=== PATIENT | female | born 2000 | race Caucasian/White ===

== ENCOUNTER 2024-01-18 13:43 | Outpatient (CLI) | payer OTHER, SELFPAY ==
--- NOTE | ~2024-01-18 | MR_ITS ---
EXAMINATION: MRA brain wo con DATE: 01/18/2024 14:31 INDICATION: Headache. Dizziness. TECHNIQUE: Magnetic resonance angiography (MRA) of the brain was performed without intravenous contra st with T1-weighted SPGR by the 3D [id number] technique. Maximum intensity projection 3D-reconstr uctions were obtained. COMPARISON: Brain MRI 01/18/2024 FINDINGS: The vertebral arteries are codominant. There is no significant stenosis of basilar artery or the post erior cerebral arteries. The posterior communicating arteries are normal. There is no significant jamari nosis of the intracranial internal carotid arteries or anterior or middle cerebral arteries. Anterior communicating artery is normal. There is no aneurysm. IMPRESSION: 1. Normal MRA. Reviewed, dictated and finalized at location E. AGING LINE ATTENDANT IMPRESSION: 1. Normal MRA.
--- NOTE | ~2024-01-18 | MR_ITS ---
EXAMINATION: MR brain/brain stem wo/w con DATE: 01/18/2024 14:34 INDICATION: Headache. Dizziness. TECHNIQUE: Magnetic resonance imaging (MRI) of the brain and brainstem was performed without and with 10 mL MultiHance intravenous contrast. COMPARISON: None. FINDINGS: There is no intracranial hemorrhage, acute infarction, or abnormal intracranial mass lesion . The ventricles are normal in size. The mastoid air cells are normal The paranasal sinuses are clear. The orbits are normal. IMPRESSION: 1. Normal brain. Reviewed, dictated and finalized at location E. OR LOSS CONTROL SPECIALIST IMPRESSION: 1. Normal brain.
== END 2024-01-18 13:44 ==
PROVIDERS: PCP Internal Medicine; Visit Provider Internal Medicine
DX: R42 Dizziness and giddiness (principal); R51.9 Headache, unspecified
CPT/HCPCS: 70544; 70553; A9577

== ENCOUNTER 2024-01-24 09:02 | Outpatient (CLI) | payer OTHER, SELFPAY ==
--- NOTE | ~2024-01-24 | XR_ITS ---
EXAMINATION: XR chest 2V DATE: 01/24/2024 10:34 INDICATION: Shortness of breath. TECHNIQUE: Frontal and lateral views of the chest were obtained. COMPARISON: Chest single view 01/04/2018 FINDINGS: There is no pneumonia, pleural effusion, or pneumothorax. The heart size is normal. IMPRESSION: 1. No acute cardiopulmonary disease. Reviewed, dictated and finalized at location A.
== END 2024-01-24 09:03 | disposition home or self-care (01) ==
LOC: CHSCARD 09:04
PROVIDERS: PCP Internal Medicine; Visit Provider Internal Medicine
DX: R06.02 Shortness of breath (principal)
CPT/HCPCS: 71046; 94060; 94726; 94729; 95012

== ENCOUNTER 2025-07-04 15:03 | Outpatient (CLI) | payer OTHER, SELFPAY ==
[2025-07-04 16:48] LABS: Beta HCG Quantitative 84373.00 mIU/ML
== END 2025-07-04 15:04 | disposition home or self-care (01) ==
LOC: CHSLAB 15:10
PROVIDERS: PCP Internal Medicine; Visit Provider Obstetrics & Gynecology Gynecology
DX: O26.851 Spotting complicating pregnancy, first trimester (principal)
CPT/HCPCS: 36415; 84702; 86850; 86900; 86901

== ENCOUNTER 2025-07-06 17:15 | Outpatient (CLI) | payer OTHER, SELFPAY ==
[2025-07-06 23:09] LABS: Beta HCG Quantitative 108490.00 mIU/ML
== END 2025-07-06 17:16 | disposition home or self-care (01) ==
LOC: CHSLAB 17:16
PROVIDERS: PCP Internal Medicine; Visit Provider Obstetrics & Gynecology Gynecology
DX: O26.851 Spotting complicating pregnancy, first trimester (principal)
CPT/HCPCS: 36415; 84702

== ENCOUNTER 2025-07-16 15:12 | Outpatient (CLI) | payer OTHER, SELFPAY ==
--- NOTE | ~2025-07-16 | US_ITS ---
EXAMINATION: US OB <= 14 weeks fetus DATE: 07/16/2025 15:30 INDICATION: Spotting TECHNIQUE: Real-time transabdominal and transvaginal obstetric ultrasound. FINDINGS: No prior studies for comparison. The uterus measures 9.4 x 5.9 x 5.9 cm. There is an intrauterine gestational sac, with pole identified. The crown rump length measures 1.84 cm, which correlates with a estimated gestational age of 8 weeks 2 days. heart tones are identified measuring 169 bpm. The ovaries are not visualized. IMPRESSION: 1. SL IUP with an EGA of 8 weeks, 2 days (EDC by current ultrasound of 02/23/2026). Reviewed, dictated and finalized at location O. IMPRESSION: 1. SL IUP with an EGA of 8 weeks, 2 days (EDC by current ultrasound of ).
== END 2025-07-16 15:13 | disposition home or self-care (01) ==
LOC: MICIMG 15:13
PROVIDERS: PCP Obstetrics & Gynecology Gynecology; Visit Provider Obstetrics & Gynecology Gynecology
DX: O26.851 Spotting complicating pregnancy, first trimester (principal); Z3A.00 Weeks of gestation of pregnancy not specified
CPT/HCPCS: 76801

== ENCOUNTER 2025-08-05 15:27 | Outpatient (CLI) | payer OTHER, SELFPAY ==
--- NOTE | ~2025-08-05 | US_ITS ---
EXAMINATION: US OB <= 14 weeks fetus DATE: 08/05/2025 16:19 INDICATION: Bleeding and TECHNIQUE: Real-time transabdominal and transvaginal obstetric ultrasound. FINDINGS: Ultrasound dated 07/16/2025 The uterus measures 11.2 x 6.2 x 7 cm. There is an intrauterine gestational sac, with pole identified. The crown rump length measures 3.99 cm. heart tones are identified measuring 177 BPM. Small subchorionic hemorrhage measuring 13 x 9 x 11 mm. IMPRESSION: 1. SL IUP with an EGA of 11 weeks, 1 days (EDC by current ultrasound of 02/23/2026). 2: Small subchorionic hemorrhage. Reviewed, dictated and finalized at location O. IMPRESSION: 1. SL IUP with an EGA of 11 weeks, 1 days (EDC by current ultrasound of 02/24/20 26). 2: Small subchorionic hemorrhage.
== END 2025-08-05 15:28 | disposition home or self-care (01) ==
PROVIDERS: PCP Internal Medicine; Visit Provider Obstetrics & Gynecology Gynecology
DX: O26.851 Spotting complicating pregnancy, first trimester (principal); Z3A.00 Weeks of gestation of pregnancy not specified
CPT/HCPCS: 76801

== ENCOUNTER 2025-08-10 18:05 | Outpatient (CLI) | payer OTHER, SELFPAY ==
[2025-08-10 18:31] LABS: Hematocrit 39.5 % (35.0-49.0); Hemoglobin 13.5 g/dL (12.0-15.0); Immature Granulocyte Percent A 0.4 % (0.0-0.0); Lymphocytes Absolute Auto 2.87 K/mm3 (1.10-4.50); Mean Corpuscular HGB Conc 34.2 g/dL (32-36); Mean Corpuscular Hemoglobin 30.5 pg (27.0-31.0); Mean Corpuscular Volume 89.2 fL (78.0-102.0); Nucleated Red Blood Cells Absolute Auto 0.00 K/mm3 (0.00-0.00); Nucleated Red Blood Cells Perc 0.0 % (0-0.0); Platelet Count Result 243 K/mm3 (150-420); Red Blood Count 4.43 M/mm3 (4.20-5.40); White Blood Count 12.4 K/mm3 (4.8-10.8)
[2025-08-10 18:42] LABS: Hemoglobin A1C 5.0 % (<5.7)
[2025-08-10 19:14] LABS: Thyroid Stimulating Hormone Reflex 0.624 uIU/mL (0.465-4.68)
[2025-08-10 19:18] LABS: Ferritin 25.10 ng/mL (6.24-137)
[2025-08-10 19:27] LABS: HIV 1 P24 AG Negative (Negative); HIV 1/2 AB Negative (Negative)
[2025-08-11 12:07] LABS: Hepatitis B Surface Antigen Negative
[2025-08-12 07:09] LABS: RPR Non Reactive (Non Reactive)
== END 2025-08-10 18:06 | disposition home or self-care (01) ==
LOC: CHSLAB 18:07
PROVIDERS: PCP Internal Medicine; Visit Provider Obstetrics & Gynecology Gynecology
DX: Z36.9 Encounter for antenatal screening, unspecified (principal)
CPT/HCPCS: 36415; 82306; 82728; 83036; 84443; 85025; 86592; 86762; 86803; 86850; 86900; 86901; 87340; 87806

== ENCOUNTER 2025-08-12 10:48 | Emergency (ER) | payer OTHER, SELFPAY ==
--- NOTE | ~2025-08-12 | US_ITS ---
EXAMINATION: US OB <= 14 weeks fetus DATE: 08/12/2025 12:59 INDICATION: Subchorionic hematoma at the right first trimester with increased vaginal bleeding. TECHNIQUE: Real-time pelvic ultrasound utilizing transabdominal probe was performed. Patient declined transvaginal imaging. The interpreting radiologist was not present for the study. COMPARISON: None. FINDINGS: The uterus measures 10.2 x 7.6 x 9.2 cm. There is an intrauterine gestational sac. A yolk sac and pole are identified. The crown rump length measures 5.5 cm, which is exactly concordant with previously estimated gestational age of 12 weeks and 1 days based upon earliest ultrasound performed at this institution on 07/16/25. heart motion is identified measuring 172 beats per minute (bpm) by M-mode Doppler. Interval decrease in size of the previously 13 x 11 x 9 mm, currently 8 x 4 x 2 mm subchorionic hematoma. The right ovary measures 3.0 x 1.8 x 1.6 cm. The left ovary measures 2.4 x 1.9 x 1.6 cm. There is no free fluid in the pelvis. IMPRESSION: 1. Single living fetus with heart rate of 172 bpm. 2. [place]-rump length of 5.5 cm which is exactly concordant with the previously estimated gestational age by ultrasound of 12 weeks 1 day(s) with ultrasound estimated date of delivery (RAMILA) of 02/23/2026. 3. Interval decrease in size of a now 8 x 4 x 2 mm subchorionic hematoma. Reviewed, dictated and finalized at location A. IMPRESSION: 1. Single living fetus with heart rate of 172 bpm. 2. [place]-rump length of 5.5 cm which is exactly concordant with the previously estimated gestational age by ultrasound of 12 weeks 1 day(s) with ultrasound es timated date of delivery (RAMILA) of 02/23/2026. 3. Interval decrease in size of a now 8 x 4 x 2 mm subchorionic hematoma.
[2025-08-12 10:53] VITALS: BP 123/75; PULSE 70; RESP 16; TEMP 36.4; O2SAT 98
[2025-08-12 12:05] LABS: Hematocrit 38.4 % (37.0-47.0); Hemoglobin 13.2 g/dL (12.0-15.0); Immature Granulocyte Percent A 0.4 % (0-0.5); Lymphocytes Absolute Auto 1.88 K/mm3 (0.9-3.2); Mean Corpuscular HGB Conc 34.4 g/dl (32-36); Mean Corpuscular Hemoglobin 30.6 pg (26-34); Mean Corpuscular Volume 89.1 fl (80-100); Nucleated Red Blood Cells Absolute Auto 0.000 K/mm3 (0.0-0.012); Nucleated Red Blood Cells Perc 0.0 % (0.0-0.2); Platelet Count Result 197 k/mm3 (150-375); Red Blood Count 4.31 M/mm3 (4.2-5.4); White Blood Count 11.4 K/mm3 (4.5-10.0)
[2025-08-12 12:06] LABS: Add Urine Microscopic? NO; Appearance Urine Clear (Clear); Glucose Urine UA Negative (Negative); Leukocyte Esterase Ur Negative LEU/UL (Negative); Nitrate Urine Negative (Negative); Specific Grav Ur 1.006 (1.001-1.035)
--- NOTE | 2025-08-12 12:08 | ED_ITS ---
HPI - General Chief complaint: SMALL PRODUCTS I ASSEMBLER Stated complaint: 12wks preg sent in for labs and US Time Seen by Provider: 08/12/25 11:00 Source: patient Mode of arrival: ambulatory Limitations: no limitations History of Present Illness HPI Narrative: Patient is a 24-year-old female who presents the ED with report of vaginal bleeding. Patient is currently 12 weeks gestation, . Reports she had sodium dark red bleeding that began around 8 weeks but resolved on its own. She had an ultrasound in her OBGYN, Dr. Gonzalez's office last week which showed a subchorionic hematoma. She began having bright red bleeding this morning. Was referred to the ED for laboratory and ultrasound evaluation. Denies significant pain. Denies dizziness, lightheadedness, soaking through a pad. Denies fevers. Related Data Allergies Allergy/AdvReac Type Severity Reaction Status Date / Time No Known Allergies Allergy Verified 08/12/25 10:49 Review of Systems 2 Review of Systems: All systems reviewed & are unremarkable except as noted in HPI. All systems reviewed & are unremarkable except as noted in HPI and below Exam 2 Narrative: GENERAL: Well appearing, thin, non-toxic, in no acute distress. HEAD: Normocephalic, atraumatic. RESPIRATORY: Airway patent, respirations nonlabored. Clear to auscultation bilaterally, no rales, rhonchi, wheezing. CARDIOVASCULAR: Regular rate and rhythm ABDOMINAL: Soft, nontender, nondistended. Normoactive BS. MUSCULOSKELETAL: Moves all extremities. No gross deformities. SKIN: Warm, dry, normal color. NEURO: A&O X3. Speech clear. PSYCHIATRIC: Appropriate mood and affect. Normal interaction. Course Vital Signs Vital signs: Vital Signs Temperature 97.6 F 08/12/25 10:53 Pulse Rate 70 08/12/25 10:53 Respiratory Rate 16 08/12/25 10:53 Blood Pressure 123/75 08/12/25 10:53 Pulse Oximetry 98 08/12/25 10:53 Temperature 97.6 F 08/12/25 10:53 Pulse Rate 70 08/12/25 14:28 Respiratory Rate 16 08/12/25 14:28 Blood Pressure 118/73 08/12/25 14:28 Pulse Oximetry 100 08/12/25 14:28 MDM - OB/Uterine Contractions MDM Narrative Medical decision making narrative: Patient presented to ED with vaginal bleeding, known subchorionic hematoma via US last week. 12 weeks gestation. . Laboratory studies unremarkable. Stable H&H. UA without signs of infection. Blood type is O positive, no indication for RhoGAM. Beta hcg 97K OB US: IMPRESSION: 1. Single living fetus with heart rate of 172 bpm. 2. [place]-rump length of 5.5 cm which is exactly concordant with the previously estimated gestational age by ultrasound of 12 weeks 1 day(s) with ultrasound estimated date of delivery (RAMILA) of 02/23/2026. 3. Interval decrease in size of a now 8 x 4 x 2 mm subchorionic hematoma. Discussed lab and imaging findings, overall reassuring workup with live IUP. Advised bleeding likely related to subchorionic. Advised to monitor bleeding very closely, discussed bleeding precautions. Recommended close follow-up with OBGYN for further evaluation. She is scheduled to have a repeat US in 2 weeks. Discussed strict return precautions. Patient in agreement with plan, feels comfortable going home. Discharged in stable condition. Medical Records Attestation: I reviewed the patient's medical records. Lab Data Attestation: I reviewed the patient's lab results. 08/12/25 11:51 08/12/25 11:51 Labs: Lab Results 08/12/25 08/12/25 Range/Units 11:51 11:55 WBC 11.4 H (4.5-10.0) K/mm3 RBC 4.31 (4.2-5.4) M/mm3 Hgb 13.2 (12.0-15.0) g/dL Hct 38.4 (37.0-47.0) % MCV 89.1 (80-100) fl MCH 30.6 (26-34) pg MCHC 34.4 (32-36) g/dl RDW 12.5 (11.5-14.5) % Plt Count 197 (150-375) k/mm3 MPV 11.1 H (7.4-10.4) fl Immature Gran % (Auto) 0.4 (0-0.5) % Neut % (Auto) 76.7 H (45.5-73.1) % Lymph % (Auto) 16.5 L (18.3-44.2) % [place] % (Auto) 5.4 (2.6-8.5) % Eos % (Auto) 0.7 (0-4.4) % Baso % (Auto) 0.3 (0.2-1.2) % Lymph # (Auto) 1.88 (0.9-3.2) K/mm3 [place] # (Auto) 0.6 (0.1-0.6) K/mm3 Eos # (Auto) 0.1 (0-0.3) K/mm3 Baso # (Auto) 0.0 (0.0-0.1) K/mm3 Abs Immat Gran (auto) 0.05 H (0.00-0.031) K/mm3 Absolute Neuts (auto) 8.7 H (1.3-6.7) K/mm3 Absolute Nucleated RBC 0.000 (0.0-0.012) K/mm3 Nucleated RBC % 0.0 (0.0-0.2) % PT 14.0 (11.1-14.7) Seconds INR 1.1 APTT 28.6 (22.3-36.8) Seconds Sodium 133 L (137-145) mmol/L Potassium 3.7 (3.4-5.0) mmol/L Chloride 103 (98-107) mmol/L Carbon Dioxide 22 (22-30) mmol/L Anion Gap 8 (4-12) mmol/L BUN 7 (7-17) mg/dL Creatinine 0.59 L (0.7-1.0) mg/dL Estim Creat Clear Calc 103 ml/min Estimated GFR > 60 (59 - ) Glucose 90 (65-110) mg/dL Calcium 9.1 (8.4-10.2) mg/dL Total Bilirubin 0.4 (0.2-1.3) mg/dL AST 26 (14-36) U/L ALT 17 (6-35) U/L Alkaline Phosphatase 50 (38-126) U/L Total Protein 7.2 (6.3-8.2) g/dL Albumin 4.1 (3.5-5.1) g/dL Beta HCG, Quant 96952.00 mIU/ML Urine Color Yellow (Yellow) Urine Appearance Clear (Clear) Urine pH 6.5 (5.0-9.0) Ur Specific [place] 1.006 (1.001-1.035) Urine Protein Negative (Negative) mg/dL Urine Glucose (UA) Negative (Negative) mg/dL Urine Ketones Trace H (Negative) mg/dL Ur Blood (Man) Negative (Negative) Urine Nitrate Negative (Negative) Urine Bilirubin Negative (Negative) Urine Urobilinogen 0.2 (<2.0) mg/dL Leukocyte Esterase Rfl Negative (Negative) ROBERTO/UL Blood Type O Positive Antibody Screen Negative Screen Not Reportable Baby's Blood Type Not Reportable Baby's ANGELICA Not Reportable Doses of RhIg Required 0 Imaging Data Attestation: I personally reviewed and interpreted this imaging study as follows: Radiologist's impression: ITS Impressions Ultrasound 08/12/25 13:09 IMPRESSION: 1. Single living fetus with heart rate of 172 bpm. 2. [place]-rump length of 5.5 cm which is exactly concordant with the previously estimated gestational age by ultrasound of 12 weeks 1 day(s) with ultrasound estimated date of delivery (RAMILA) of 02/23/2026. 3. Interval decrease in size of a now 8 x 4 x 2 mm subchorionic hematoma. Discharge Plan Discharge Clinical Impression: Vaginal bleeding in , 12 weeks gestation of Subchorionic hematoma in first trimester Qualifiers: Fetus number: single or unspecified fetus Qualified Code(s): O41.8X10 - Other specified disorders of amniotic fluid and membranes, first trimester, not applicable or unspecified; O46.8X1 - Other antepartum hemorrhage, first trimester Patient Disposition: Home Condition: Stable Instructions: Antibiotic Form, Non-Threatening First Trimester Vaginal Bleed (ED), Subchorionic Hemorrhage (ED) Additional Instructions: Continue to monitor bleeding. Follow-up with your OBGYN for further evaluation. Return to the ED if you experience worsening or severe bleeding, bleeding associated with cramping, feeling dizzy or lightheaded, unable to keep down food or drink, or any other symptoms of concern. Patient Language: Sami Follow-up/Referrals: Mercedes Jimenez MD [Primary Care Provider, Internal Medicine] Time of Disposition: 14:16
[2025-08-12 12:18] LABS: INR 1.1; Prothrombin Time 14.0 Seconds (11.1-14.7)
[2025-08-12 12:19] LABS: Partial Thromboplastin Time 28.6 Seconds (22.3-36.8)
[2025-08-12 12:20] LABS: Alanine Aminotransferase 17 U/L (6-35); Albumin Level 4.1 g/dL (3.5-5.1); Alkaline Phosphatase 50 U/L (38-126); Anion Gap 8 mmol/L (4-12); Aspartate Amino Transferase 26 U/L (14-36); Bilirubin,Total 0.4 mg/dL (0.2-1.3); Blood Urea Nitrogen 7 mg/dL (7-17); Calcium 9.1 mg/dL (8.4-10.2); Carbon Dioxide 22 mmol/L (22-30); Chloride 103 mmol/L (98-107); Estimated CRCL calculation 103 ml/min; Estimated Glomerular Filt Rate > 60; Glucose 90 mg/dL (65-110); Potassium 3.7 mmol/L (3.4-5.0); Sodium 133 mmol/L (137-145); Total Protein 7.2 g/dL (6.3-8.2)
[2025-08-12 14:09] LABS: Beta HCG Quantitative 97377.00 mIU/ML
[2025-08-12 14:28] VITALS: BP 118/73; PULSE 70; RESP 16; O2SAT 100
== END 2025-08-12 14:31 | disposition home or self-care (01) ==
PROVIDERS: Emergency Provider Physician Assistant; PCP Internal Medicine
DX: O46.8X1 Other antepartum hemorrhage, first trimester (principal); Z3A.12 12 weeks gestation of pregnancy
CPT/HCPCS: 36415; 76801; 80053; 81003; 84702; 85025; 85461; 85610; 85730; 86850; 86900; 86901; 99284

== ENCOUNTER 2025-08-25 15:02 | Outpatient (CLI) | payer OTHER, SELFPAY ==
--- NOTE | ~2025-08-25 | US_ITS ---
EXAMINATION: US OB <= 14 weeks fetus DATE: 08/25/2025 15:25 INDICATION: Subchorionic hematoma TECHNIQUE: Real-time ultrasound of the pelvis was performed. The interpreting radiologist was not present for the study. COMPARISON: 08/12/2025 FINDINGS: There is a single living fetus in transverse lie. The placenta is posterior with caudal margin extending to within 7 mm of the internal cervical os. There is a subchorionic hematoma along the inferior margin of the placenta which extends across the internal cervical os and measures 3.9 x 2.2 x 1.8 cm. heart rate is 154 beats per minute (bpm). The amniotic fluid volume is subjectively normal. IMPRESSION: 1. Single living fetus in transverse lie with heart rate of 154 bpm. 2. Low-lying posterior placenta with caudal margin 7 mm from the internal cervical os and increased size of a now 3.9 x 2.2 x 1.8 cm subchorionic hematoma which extends from the inferior margin of the placenta across the internal cervical os. Reviewed, dictated and finalized at location A. IMPRESSION: 1. Single living fetus in transverse lie with heart rate of 154 bpm. 2. Low-lying posterior placenta with caudal margin 7 mm from the internal cervi obdulio os and increased size of a now 3.9 x 2.2 x 1.8 cm subchorionic hematoma whi ch extends from the inferior margin of the placenta across the internal cervica l os.
== END 2025-08-25 15:03 | disposition home or self-care (01) ==
LOC: MICIMG 15:03
PROVIDERS: PCP Obstetrics & Gynecology Gynecology; Visit Provider Obstetrics & Gynecology Gynecology
DX: O36.8910 Maternal care for other specified fetal problems, first trimester, not applicable or unspecified (principal); Z3A.00 Weeks of gestation of pregnancy not specified
CPT/HCPCS: 76801

== ENCOUNTER 2025-09-21 08:20 | Outpatient (CLI) | payer OTHER, SELFPAY ==
--- NOTE | ~2025-09-21 | US_ITS ---
EXAMINATION: US OB follow up DATE: 09/21/2025 08:50 INDICATION: Maternal carrier for other specified problems during second trimester TECHNIQUE: Real-time ultrasound of the pelvis was performed. The interpreting radiologist was not present for the study. COMPARISON: None. FINDINGS: There is a single living fetus in vertex presentation. The placenta is posterior with caudal margin 5 cm from the internal cervical os. No evident subchorionic hematoma. heart rate is 149 beats per minute (bpm). The amniotic fluid volume is subjectively normal. The following biometric data were obtained: BPD: 3.9 cm -> 17 weeks 6 days Head circumference: 14.2 cm -> 17 weeks 3 days Abdominal circumference: 11.7 cm -> 17 weeks 3 days Femur length: 2.2 cm -> 16 weeks 3 days These measurements are concordant. Head circumference to abdominal circumference ratio: 1.22 (normal range 1.07-1.29). Estimated weight: 178 g (+/-) 27 g or 6 oz. (+/-) 1 oz. IMPRESSION: 1. Single living fetus in vertex presentation with heart rate of 149 bpm. 2. Estimated weight is 8th percentile by Hadlock criteria when 02/23/2026 is used as the estimated date of delivery (RAMILA). Please correlate with clinical information or earlier ultrasounds for most accurate RAMILA. Reviewed, dictated and finalized at location A. UET WAITER/WAITRESS
== END 2025-09-21 08:21 | disposition home or self-care (01) ==
LOC: MICIMG 08:21
PROVIDERS: PCP Obstetrics & Gynecology Gynecology; Visit Provider Obstetrics & Gynecology Gynecology
DX: O36.8920 Maternal care for other specified fetal problems, second trimester, not applicable or unspecified (principal); Z3A.00 Weeks of gestation of pregnancy not specified
CPT/HCPCS: 76816